=== PATIENT | male | born 1930 | race Caucasian/White ===

== ENCOUNTER 2016-06-27 13:41 | Observation (INO) | payer MEDICARE ==
[~2016-06-27] VITALS: Ht 165.1 cm; Wt 71.5 kg
[~2016-06-27 13:41] MED LIST: BENICAR 20MG TA20 MG PO; BUSPAR10 MG PO; LASIX 20MG TABL20 MG PO; PREDNISONE20 MG PO; PROCARDIA XL 6060 MG PO; ZOCOR 10MG10 MG PO
[2016-06-27] MEDS ORDERED: BUSPIRONE HCL7.5 MG PO (13:50)
[2016-06-27] MEDS ORDERED: ALLEGRA 60MG TA60 MG PO (13:51)
[2016-06-27] MEDS ORDERED: IMODIUM 2MG CAPS2 MG PO (13:51)
[2016-06-27] MEDS ORDERED: ASPIRIN 81M81 MG/TA2 PO (13:52)
[2016-06-27] MEDS ORDERED: FLOMAX 0.40.4 MG/CAP PO (13:52)
[2016-06-27] MEDS ORDERED: OMEGA-3 1000 MG1 CAP PO (13:52)
[2016-06-27 14:24] LABS: BASO # 0.1 (0.0-0.2); BASO % 0.5 % (0.0-2.0); EOS # 0.1 (0.0-0.7); EOS % 1.5 % (0-4.0); GRAN % 75.6 % (42.2-75.2); HEMOGLOBIN 15.2 g/dl (13.5-18.0); LYMPH # 1.4 (1.2-3.4); LYMPH % 14.6 % (20.0-51.0); MEAN CELL VOLUME 92 fl (80.0-100.0); MEAN CORPUSCULAR HEMOGLOBIN 31 pg (27.0-31.0); MEAN CORPUSCULAR HGB CONC 34 g/dl (33.0-37.0); MEAN PLATELET VOLUME 9.7 fl (7.4-10.4); MONO # 0.7 (0.1-0.6); MONO % 7.7 % (1.7-9.3); PLATELET COUNT 174 K/mm3 (130-400); RED BLOOD COUNT 4.89 M/mm3 (4.20-5.60); WHITE BLOOD COUNT 9.2 K/mm3 (4.8-10.8)
[2016-06-27 14:27] LABS: PROTHROMBIN TIME 11.1 SECONDS (9.7-12.8)
[2016-06-27 14:34] LABS: ADJUSTED CALCIUM 8.8 mg/dL (8.4-10.2); ALANINE AMINOTRANSFERASE 42 U/L (21-72); ALBUMIN 3.8 gm/dL (3.5-5.0); ALKALINE PHOSPHATASE 85 U/L (50-136); ANION GAP 13 mmol/L (7-16); BILIRUBIN,TOTAL 0.9 mg/dL (0.0-1.0); BLOOD UREA NITROGEN 27 mg/dL (9-20); CALCIUM 8.6 mg/dL (8.4-10.2); CARBON DIOXIDE 20 mmol/L (22-30); CHLORIDE 106 mmol/L (98-107); CREATININE, serum 1.37 mg/dL (0.66-1.25); GLUCOSE 131 mg/dL (74-106); POTASSIUM 4.4 mmol/L (3.4-5.0); SODIUM 138 mmol/L (137-145); TOTAL PROTEIN 7.7 gm/dL (6.4-8.2)
[2016-06-27 14:45] LABS: TROPONIN-I < 0.012 ng/mL (0.000-0.034)
[2016-06-27 15:50] VITALS: BP 162/80; PULSE 82
[2016-06-27 20:50] VITALS: BP 160/82; PULSE 95; TEMP 98.2
[2016-06-28 00:30] VITALS: BP 122/66; PULSE 80; TEMP 98.6
[2016-06-28 04:29] VITALS: BP 125/61; PULSE 77; TEMP 98.3
[2016-06-28 08:03] VITALS: BP 153/97; PULSE 76; TEMP 97.5
[2016-06-28 08:04] VITALS: BP 114/62; PULSE 79; TEMP 98.6
[2016-06-28 12:50] VITALS: BP 120/60; PULSE 80; TEMP 98.6
[2016-06-28 16:24] VITALS: BP 129/70; PULSE 86; TEMP 97.5
== END 2016-06-28 18:16 | disposition home or self-care (01) ==
LOC: COL.ER 13:41 → MEDICAL 19:55
PROVIDERS: Family Medicine; Psychiatry & Neurology Neurology
DX: R55 Syncope and collapse (principal); R42 Dizziness and giddiness; R27.0 Ataxia, unspecified; I10 Essential (primary) hypertension; E78.1 Pure hyperglyceridemia; G90.9 Disorder of the autonomic nervous system, unspecified; N28.9 Disorder of kidney and ureter, unspecified; I45.10 Unspecified right bundle-branch block; I44.0 Atrioventricular block, first degree
CPT/HCPCS: 99233-AI; A9585; G0378; G8978-GP; G8979-GP; G8987-GO; G8988-GO; G9168-GN; G9169-GN; G9170-GN; J7030